=== PATIENT | female | born 1990 | race Caucasian/White ===

== ENCOUNTER 2017-02-24 21:55 | Emergency (ER) | payer MEDICAID ==
[~2017-02-24] VITALS: Ht 162.6 cm; Wt 70.9 kg
[2017-02-24 21:59] VITALS: BP 131/85
== END 2017-02-24 23:01 | disposition home or self-care (01) ==
LOC: ED 22:45
DX: K21.9 Gastro-esophageal reflux disease without esophagitis (principal); R05 Cough
CPT/HCPCS: 99283

== ENCOUNTER 2017-04-06 16:09 | Emergency (ER) | payer MEDICAID ==
[~2017-04-06] VITALS: Ht 160 cm; Wt 64.7 kg
[2017-04-06] MEDS ORDERED: LEVO112T4 PO (17:20)
[2017-04-06] MEDS ORDERED: SODIUM CHLORIDE FLUSH 10ML SYR IVF ONE (19:00)
[2017-04-06] MEDS ORDERED: SODIUM CHLORIDE 0.9% 1,000ML IVBOLUS ONE (19:00)
[2017-04-06 19:06] LABS: HEMATOCRIT 42.9 % (34.6-47.8); HEMOGLOBIN 14.7 g/dL (11.7-16.4); WHITE BLOOD COUNT 7.4 x10^3/uL (3.4-10)
[2017-04-06 19:16] LABS: BLOOD UREA NITROGEN 7 mg/dL (7-18)
[2017-04-06 20:49] VITALS: BP 109/76
== END 2017-04-06 20:51 | disposition home or self-care (01) ==
LOC: ED 18:12
DX: N93.8 Other specified abnormal uterine and vaginal bleeding (principal)
CPT/HCPCS: 36415; 76856; 80048; 82040; 84703; 85025; 86850; 86900; 96360; 96361; 99285; J7030

== ENCOUNTER 2017-04-18 15:23 | Emergency (ER) | payer MEDICAID ==
[~2017-04-18] VITALS: Ht 160 cm; Wt 64.1 kg
[~2017-04-18 15:23] MED LIST: LEVO112T4 PO
[2017-04-18 15:25] VITALS: BP 118/83
== END 2017-04-18 16:06 | disposition home or self-care (01) ==
LOC: ED 16:01
DX: J02.8 Acute pharyngitis due to other specified organisms (principal); B97.89 Other viral agents as the cause of diseases classified elsewhere; E03.9 Hypothyroidism, unspecified; Z88.8 Allergy status to other drugs, medicaments and biological substances
CPT/HCPCS: 87081; 87147; 87880; 99284

== ENCOUNTER 2017-05-21 14:43 | Emergency (ER) | payer MEDICAID ==
[~2017-05-21] VITALS: Ht 162.6 cm; Wt 62.2 kg
[2017-05-21 17:19] VITALS: BP 110/78
== END 2017-05-21 17:26 | disposition home or self-care (01) ==
LOC: ED 17:20
DX: J02.8 Acute pharyngitis due to other specified organisms (principal); B97.89 Other viral agents as the cause of diseases classified elsewhere; E89.0 Postprocedural hypothyroidism
CPT/HCPCS: 36415; 71020; 84439; 84443; 86308; 87081; 87880; 99285

== ENCOUNTER 2017-11-16 15:55 | Emergency (ER) | payer MEDICAID ==
[~2017-11-16] VITALS: Ht 160 cm; Wt 58.7 kg
[2017-11-16] MEDS ORDERED: LEVO125T5 PO (16:18)
[2017-11-16] MEDS ORDERED: CEFTRIAXONE 1,000 MG ONE (16:50)
[2017-11-16] MEDS ORDERED: LIDOCAINE-MPF 1%, 5ML ONE (16:50)
[2017-11-16] MEDS ORDERED: CEFTRIAXONE 1,000 MG IM ONE (17:00)
[2017-11-16 17:24] LABS: BASOPHILS # (AUTO) 0.06 x10^3/uL (0-0.1); BASOPHILS % (AUTO) 1 % (0-1); EOSINOPHILS # (AUTO) 0.15 x10^3/uL (0-0.4); EOSINOPHILS % (AUTO) 2 % (1-7); LYMPHOCYTES # (AUTO) 2.52 x10^3/uL (1-3.4); LYMPHOCYTES % (AUTO) 38 % (22-44); MD NO; MEAN CORPUSCULAR HEMOGLOBIN 29.7 pg (27.0-34.8); MEAN CORPUSCULAR HGB CONC 34.2 g/dL (32.4-35.8); MEAN CORPUSCULAR VOLUME 86.7 fL (80-100); MONOCYTES % (AUTO) 11 % (2-9); NEUTROPHILS # (AUTO) 3.22 x10^3/uL (1.8-6.8); NEUTROPHILS % (AUTO) 48 % (42-75); PLATELET COUNT 291 x10^3/uL (130-400); RED BLOOD COUNT 4.43 x10^6/uL (3.82-5.3); RED CELL DISTRIBUTION WIDTH 12.6 % (9.6-15.2)
[2017-11-16 17:33] LABS: ALBUMIN 3.2 g/dL (3.4-5.0); ANION GAP 8 mmol/L (5-15); CALCIUM 7.9 mg/dL (8.5-10.1); CHLORIDE 110 mmol/L (98-107); CREATININE 0.79 mg/dL (0.55-1.02)
[2017-11-16] MEDS ORDERED: BACITRACIN ZINC OINT 500U/GM, 0.9 GM ONE (18:01)
[2017-11-16 18:25] VITALS: BP 115/66
== END 2017-11-16 18:28 | disposition home or self-care (01) ==
LOC: ED 18:00
DX: L03.115 Cellulitis of right lower limb (principal)
CPT/HCPCS: 36415; 80048; 82040; 85025; 96372; 99284; J0696

== ENCOUNTER 2017-12-08 01:21 | Inpatient (IN) | payer MEDICAID ==
[~2017-12-08] VITALS: Ht 160 cm; Wt 64.7 kg
[~2017-12-08 01:21] MED LIST changes: +LEVO125T5 PO
[2017-12-08] MEDS ORDERED: SODIUM CHLORIDE FLUSH 10ML SYR IVF ONE (02:30)
[2017-12-08] MEDS ORDERED: CLINDAMYCIN PMX 600MG/50ML 50 ML IV ONE (02:30)
[2017-12-08 03:00] LABS: BASOPHILS # (AUTO) 0.04 x10^3/uL (0-0.1); BASOPHILS % (AUTO) 0 % (0-1); EOSINOPHILS # (AUTO) 0.02 x10^3/uL (0-0.4); EOSINOPHILS % (AUTO) 0 % (1-7); LYMPHOCYTES # (AUTO) 0.92 x10^3/uL (1-3.4); LYMPHOCYTES % (AUTO) 5 % (22-44); MD NO; MEAN CORPUSCULAR HEMOGLOBIN 29.6 pg (27.0-34.8); MEAN CORPUSCULAR HGB CONC 33.8 g/dL (32.4-35.8); MEAN CORPUSCULAR VOLUME 87.5 fL (80-100); MEAN PLATELET VOLUME 8.3 fL (7.4-10.4); MONOCYTES # (AUTO) 1.17 x10^3/uL (0.2-0.8); MONOCYTES % (AUTO) 7 % (2-9); NEUTROPHILS % (AUTO) 88 % (42-75); PLATELET COUNT 168 x10^3/uL (130-400); RED BLOOD COUNT 4.67 x10^6/uL (3.82-5.3); RED CELL DISTRIBUTION WIDTH 12.5 % (9.6-15.2)
[2017-12-08 03:09] LABS: ALBUMIN 3.2 g/dL (3.4-5.0); ANION GAP 9 mmol/L (5-15); CALCIUM 8.2 mg/dL (8.5-10.1); CHLORIDE 103 mmol/L (98-107); CREATININE 0.73 mg/dL (0.55-1.02)
[2017-12-08] MEDS ORDERED: CLINDAMYCIN PMX 600MG/50ML 50 ML ONE (03:09)
[2017-12-08] MEDS ORDERED: SODIUM CHLORIDE 0.9% 1,000ML IVBOLUS ONE (03:30)
[2017-12-08] MEDS ORDERED: ONDANSETRON 2MG/ML, 2ML IVPush PRN ×2 (04:00→05:00)
[2017-12-08] MEDS ORDERED: ONDANSETRON ODT 4 MG PO PRN (05:00)
[2017-12-08] MEDS ORDERED: ACETAMINOPHEN 325 MG TABLET PO PRN (05:00)
[2017-12-08] MEDS: NICOTINE 14MG/24 HR PATCH.TD24 TD SCH ×2 (05:00→06:19)
[2017-12-08] MEDS ORDERED: TEMAZEPAM 15 MG CAPSULE PO PRN (05:00)
[2017-12-08] MEDS ORDERED: DOCUSATE 100 MG CAPSULE PO PRN (05:00)
[2017-12-08] MEDS ORDERED: POTASSIUM CHLORIDE 20 MEQ TAB.ER.PRT PO ONE (05:00)
[2017-12-08 05:51] VITALS: BP 104/66
[2017-12-08] MEDS: LEVOTHYROXINE 125 MCG TABLET PO SCH (05:58)
[2017-12-08] MEDS: HEPARIN 5,000 UNITS/ML, 1ML SQ SCH ×3 (05:59→21:00)
[2017-12-08 09:02] VITALS: BP 110/65
[2017-12-08] MEDS: CLINDAMYCIN PMX 900MG/50ML 50 ML IV SCH ×2 (11:40→17:49)
[2017-12-08 14:47] VITALS: BP 117/71
[2017-12-08 18:33] VITALS: BP 97/62
[2017-12-09 01:21] VITALS: BP 94/59
[2017-12-09] MEDS: CLINDAMYCIN PMX 900MG/50ML 50 ML IV SCH ×3 (03:34→19:09)
[2017-12-09 04:38] LABS: BASOPHILS # (AUTO) 0.05 x10^3/uL (0-0.1); BASOPHILS % (AUTO) 0 % (0-1); EOSINOPHILS # (AUTO) 0.17 x10^3/uL (0-0.4); EOSINOPHILS % (AUTO) 1 % (1-7); LYMPHOCYTES # (AUTO) 1.86 x10^3/uL (1-3.4); LYMPHOCYTES % (AUTO) 13 % (22-44); MD NO; MEAN CORPUSCULAR HEMOGLOBIN 29.7 pg (27.0-34.8); MEAN CORPUSCULAR HGB CONC 33.5 g/dL (32.4-35.8); MEAN CORPUSCULAR VOLUME 88.6 fL (80-100); MEAN PLATELET VOLUME 8.3 fL (7.4-10.4); MONOCYTES # (AUTO) 1.42 x10^3/uL (0.2-0.8); MONOCYTES % (AUTO) 10 % (2-9); NEUTROPHILS # (AUTO) 11.02 x10^3/uL (1.8-6.8); NEUTROPHILS % (AUTO) 76 % (42-75); PLATELET COUNT 157 x10^3/uL (130-400); RED BLOOD COUNT 4.19 x10^6/uL (3.82-5.3); RED CELL DISTRIBUTION WIDTH 12.3 % (9.6-15.2)
[2017-12-09 04:46] LABS: ANION GAP 7 mmol/L (5-15); CALCIUM 7.6 mg/dL (8.5-10.1); CHLORIDE 105 mmol/L (98-107); CREATININE 0.48 mg/dL (0.55-1.02)
[2017-12-09] MEDS: NICOTINE 14MG/24 HR PATCH.TD24 TD SCH (05:00)
[2017-12-09] MEDS: HEPARIN 5,000 UNITS/ML, 1ML SQ SCH ×3 (05:00→21:53)
[2017-12-09] MEDS: LEVOTHYROXINE 125 MCG TABLET PO SCH (05:00)
[2017-12-09 07:11] VITALS: BP 102/65
[2017-12-09 13:45] VITALS: BP 110/72
[2017-12-09] MEDS ORDERED: GADOBUTROL 7.5 MMOL/7.5 ML PFS ONE (15:41)
[2017-12-09 19:14] VITALS: BP 96/60
[2017-12-10 01:45] VITALS: BP 95/57
[2017-12-10] MEDS: CLINDAMYCIN PMX 900MG/50ML 50 ML IV SCH ×2 (03:24→10:57)
[2017-12-10] MEDS: HEPARIN 5,000 UNITS/ML, 1ML SQ SCH ×2 (04:23→13:00)
[2017-12-10] MEDS: NICOTINE 14MG/24 HR PATCH.TD24 TD SCH (05:00)
[2017-12-10] MEDS: LEVOTHYROXINE 125 MCG TABLET PO SCH (06:00)
[2017-12-10 08:25] VITALS: BP 93/59
[2017-12-10 12:19] LABS: BASOPHILS % (AUTO) 0 % (0-1); EOSINOPHILS # (AUTO) 0.09 x10^3/uL (0-0.4); EOSINOPHILS % (AUTO) 1 % (1-7); LYMPHOCYTES # (AUTO) 1.16 x10^3/uL (1-3.4); LYMPHOCYTES % (AUTO) 10 % (22-44); MD NO; MEAN CORPUSCULAR HEMOGLOBIN 29.9 pg (27.0-34.8); MEAN PLATELET VOLUME 8.3 fL (7.4-10.4); MONOCYTES % (AUTO) 10 % (2-9); NEUTROPHILS # (AUTO) 9.09 x10^3/uL (1.8-6.8); NEUTROPHILS % (AUTO) 80 % (42-75); PLATELET COUNT 187 x10^3/uL (130-400); RED BLOOD COUNT 4.44 x10^6/uL (3.82-5.3); RED CELL DISTRIBUTION WIDTH 12.5 % (9.6-15.2)
[2017-12-10 12:30] LABS: ALBUMIN 2.5 g/dL (3.4-5.0); ANION GAP 6 mmol/L (5-15); CALCIUM 7.7 mg/dL (8.5-10.1); CHLORIDE 103 mmol/L (98-107)
[2017-12-10 12:36] LABS: ALANINE AMINOTRANSFERASE 12 U/L (12-78); ALKALINE PHOSPHATASE 61 U/L (45-117); BILIRUBIN,TOTAL 0.4 mg/dL (0.2-1.0); CREATININE 0.51 mg/dL (0.55-1.02); TOTAL PROTEIN 6.7 g/dL (6.4-8.2)
== END 2017-12-10 14:04 | disposition left against medical advice (07) | DRG 603 ==
LOC: ED 02:23 → EDIP 03:45 → 3NE 05:46
PROVIDERS: ADMIT Internal Medicine; ATTEND Internal Medicine
DX: L03.115 Cellulitis of right lower limb (principal); E03.9 Hypothyroidism, unspecified; F17.210 Nicotine dependence, cigarettes, uncomplicated; E87.6 Hypokalemia; F15.10 Other stimulant abuse, uncomplicated; Z79.899 Other long term (current) drug therapy; R73.9 Hyperglycemia, unspecified
CPT/HCPCS: 36415; 80048; 80053; 82040; 83605; 84145; 84702; 85025; 87040; 96365; A9585; J1644; J7030

== ENCOUNTER 2018-09-08 02:36 | Inpatient (IN) | payer MEDICAID, OTHER ==
[~2018-09-08] VITALS: Ht 157.5 cm; Wt 58.9 kg
--- NOTE | 2018-09-08 02:58 | NUR ---
PT. TO ED WITH C/O DIFFUSE ABD PAIN X 4 DAYS AND DIARRHEA. DENIES N/V. ALSO C/O SOME LOWER BACK PAIN. PT. REPORTS ETOH DAILY AND METH USE YESTERDAY. 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 ALEJANDRO PEREIRA IN TO EVAL PT. AND DISCUSS POC. URINE SAMPLE COLLECTED AND SENT TO LAB.
[2018-09-08] MEDS ORDERED: MORPHINE SULFATE 4 MG/ML, 1ML IVPush PRN (03:00)
[2018-09-08] MEDS ORDERED: ONDANSETRON 2MG/ML, 2ML IVPush ONE (03:00)
[2018-09-08] MEDS ORDERED: ONDANSETRON 2MG/ML, 2ML ONE ×2 (03:04→08:19)
[2018-09-08] MEDS ORDERED: MORPHINE SULFATE 4 MG/ML, 1ML ONE (03:04)
--- NOTE | 2018-09-08 03:15 | NUR ---
IV ESTABLISHED; BLOOD DRAWN. PT. REFUSED PAIN/NAUSEA MEDS. WARM BLANKET PROVIDED. CALL LIGHT IN REACH.
[2018-09-08 03:16] LABS: MICROSCOPIC AUTO
[2018-09-08 03:19] LABS: CULTURE INDICATED? NO
[2018-09-08 03:19] LABS: BASOPHILS # (AUTO) 0.02 x10^3/uL (0-0.1); BASOPHILS % (AUTO) 0 % (0-1); EOSINOPHILS % (AUTO) 1 % (1-7); LYMPHOCYTES # (AUTO) 1.06 x10^3/uL (1-3.4); LYMPHOCYTES % (AUTO) 12 % (22-44); MD NO; MEAN CORPUSCULAR HEMOGLOBIN 26.1 pg (27.0-34.8); MEAN CORPUSCULAR HGB CONC 32.1 g/dL (32.4-35.8); MEAN CORPUSCULAR VOLUME 81.3 fL (80-100); MONOCYTES # (AUTO) 0.62 x10^3/uL (0.2-0.8); MONOCYTES % (AUTO) 7 % (2-9); NEUTROPHILS # (AUTO) 7.14 x10^3/uL (1.8-6.8); NEUTROPHILS % (AUTO) 80 % (42-75); PLATELET COUNT 241 x10^3/uL (130-400); RED BLOOD COUNT 4.81 x10^6/uL (3.82-5.3); RED CELL DISTRIBUTION WIDTH 13.7 % (9.6-15.2)
[2018-09-08 03:25] LABS: CHLORIDE 104 mmol/L (98-107)
[2018-09-08 03:31] LABS: ALANINE AMINOTRANSFERASE 15 U/L (12-78); ALBUMIN 2.6 g/dL (3.4-5.0); ANION GAP 9 mmol/L (5-15); CALCIUM 7.7 mg/dL (8.5-10.1); CREATININE 0.52 mg/dL (0.55-1.02)
[2018-09-08 03:49] LABS: ALKALINE PHOSPHATASE 76 U/L (45-117); BILIRUBIN,TOTAL 0.2 mg/dL (0.2-1.0); TOTAL PROTEIN 7.5 g/dL (6.4-8.2)
[2018-09-08 03:50] LABS: WET PREP WBCS FEW (FEW)
[2018-09-08] MEDS ORDERED: KETOROLAC 30 MG/1 ML ONE ×2 (03:51→08:43)
[2018-09-08 03:54] LABS: CLUE CELLS NONE SEEN (NONE SEEN)
[2018-09-08] MEDS ORDERED: metroNIDAZOLE 500 MG TABLET PO ONE (04:00)
[2018-09-08] MEDS ORDERED: KETOROLAC 30 MG/1 ML IVPush ONE (04:00)
--- NOTE | 2018-09-08 04:00 | NUR ---
PT. MEDICATED PER OCT FOR 02/11 ABD PAIN. VS UPDATED. CALL LIGHT IN REACH. AWAITING CT.
--- NOTE | 2018-09-08 04:10 | NUR ---
PT. OUT OF ROOM FOR CT.
[2018-09-08] MEDS ORDERED: metroNIDAZOLE 500 MG TABLET ONE (04:26)
[2018-09-08] MEDS ORDERED: LEVO112T4 PO (05:00)
--- NOTE | 2018-09-08 05:14 | NUR ---
gen surg called.
--- NOTE | 2018-09-08 05:15 | NUR ---
PT. AWARE OF PLAN FOR ADMISSION AND NPO STATUS.
[2018-09-08] MEDS ORDERED: OMNIPAQUE 350 MG/ML, 100ML BOTTLE ONE (06:01)
--- NOTE | 2018-09-08 06:10 | NUR ---
NG TUBE PLACED AND PLACEMENT CONFIRMED BY 2 RN AT BS WITH AIR BOLUS; LOW CONTINUOUS SUCTION IN USE; 200 ML OF MOSTLY CLEAR LIQUID RETURNED. PT. TOLERATED PLACEMENT WELL BUT IS NOW SHOUTING "TAKE THIS THING OUT!! GET THIS OUT NOW! I DON'T WANT THIS, GET IT OUT!" EXPLAINED TO PT. NEED FOR NGT; PT. AGREEABLE WITH POC.
--- NOTE | 2018-09-08 06:47 | NUR ---
PT. CONTINUES RESTING ON GURNEY IN SITTING POSITON. EYES CLOSED. RESP EVEN, NON-LABORED. NGT REMAINS IN [place]; NO NEW OUTPUT ON LOW CONTINUOUS SUCTION. CALL LIGHT IN REACH. ALL SAFETY MEASURES OBSERVED.
--- NOTE | 2018-09-08 07:01 | NUR ---
REPORT TO HANH ALVARADO (WITH HANH MULLIGAN).
--- NOTE | 2018-09-08 07:05 | NUR ---
REPORT TO HANH MORRIS PRE OP. PT. TO GO TO OR IN ABOUT 10 MIN FOR EX LAP WITH DR. VILLEGAS PER PRE OP RN.
--- NOTE | 2018-09-08 07:21 | NUR ---
Pt to OR via [facility]. Body jewelry in nose, umbilicus & lip removed by pt. When attempted to assist taking socks off, noticed lump on top of sock, pt became agitated & would not let me help, asked me to leave room while she took them off because there was money in them. Offered to call security so money could be locked up & pt refused. Interaction relayed to OR manager transportation & pre-op HANH Vega also called & notified of pt's unusual behavior. Also notified that pt admits to using methamphetamine daily. All clothing/belongings/jewelry went up with pt.
[2018-09-08] MEDS ORDERED: BUPIVACAINE/PF-EPI 0.5% 1:200K ONE (07:23)
[2018-09-08] MEDS ORDERED: FENTANYL PF 250 MCG/5ML ONE (07:33)
[2018-09-08] MEDS ORDERED: MIDAZOLAM 1 MG/ML, 2ML ONE (07:33)
[2018-09-08] MEDS ORDERED: PHENYLEPHRINE 10 MG/ML ONE (07:43)
[2018-09-08] MEDS ORDERED: ROCURONIUM 10MG/ML,5ML ONE (07:43)
[2018-09-08] MEDS ORDERED: NEOSTIGMINE 1 MG/ML, 10ML ONE (07:43)
[2018-09-08] MEDS ORDERED: DEXAMETHASONE 4 MG/ML, 1ML ONE ×3 (07:58→08:19)
[2018-09-08] MEDS ORDERED: ONDANSETRON 2MG/ML, 2ML IVPush PRN (08:00)
[2018-09-08] MEDS ORDERED: ONDANSETRON ODT 4 MG PO PRN (08:00)
[2018-09-08] MEDS: PANTOPRAZOLE 40 MG IV IVPush SCH (08:00)
[2018-09-08] MEDS ORDERED: LABETALOL 5MG/ML, 20ML IVPush PRN (08:00)
[2018-09-08] MEDS ORDERED: morphine SULFATE 10 MG/ML, 1ML IVPush PRN (08:00)
[2018-09-08] MEDS ORDERED: PROPOFOL 10 MG/ML, 20ML ONE (08:19)
[2018-09-08] MEDS ORDERED: LIDOCAINE 2% 100MG/5ML SYRINGE ONE (08:19)
[2018-09-08] MEDS ORDERED: CEFOTETAN PMX 1GM/50ML 100 ML ONE (08:19)
[2018-09-08] MEDS ORDERED: GLYCOPYRROLATE 0.2MG/1ML, 5ML ONE (08:21)
[2018-09-08] MEDS ORDERED: ALBUTEROL SULFATE 2.5 MG/3 ML NPPB PRN (08:30)
[2018-09-08] MEDS ORDERED: PROMETHAZINE 25 MG/ML, 1ML IV PRN (08:30)
[2018-09-08] MEDS ORDERED: LORazepam 2 MG/ML, 1ML IVPush PRN (08:30)
[2018-09-08] MEDS ORDERED: OXYcodone 5 MG/5 ML ORAL.SOL UDC PO PRN (08:30)
[2018-09-08] MEDS ORDERED: HYDROmorphone 2 MG/ML, 1ML IVPush PRN (08:30)
[2018-09-08] MEDS ORDERED: FENTANYL PF 100 MCG/2ML IV PRN (08:30)
[2018-09-08] MEDS ORDERED: HALOPERIDOL 5 MG/ML IV PRN (08:30)
[2018-09-08] MEDS ORDERED: hydrALAzine 20 MG/ML, 1ML IV PRN (08:30)
[2018-09-08] MEDS ORDERED: MEPERIDINE/PF 25MG/0.5ML IVPush PRN (08:30)
[2018-09-08] MEDS ORDERED: FENTANYL PF 100 MCG/2ML ONE (08:43)
[2018-09-08] MEDS ORDERED: KETOROLAC 30 MG/1 ML IVPush PRN (09:00)
[2018-09-08 10:19] VITALS: BP 111/71
[2018-09-08] MEDS ORDERED: D5%-0.45NACL+KCL 20MEQ 1,000 ML IV SCH (10:30)
[2018-09-08] MEDS ORDERED: POTASSIUM CHLORIDE 20 MEQ, MAGNESIUM SULFATE 1 GM, MVI ADULT 10 ML, THIAMINE 200 MG, FO... IV SCH (11:00)
[2018-09-08] MEDS ORDERED: LORazepam 1MG TABLET PO PRN ×4 (11:00)
[2018-09-08] MEDS ORDERED: LORazepam 0.5MG TABLET PO PRN (11:00)
[2018-09-08] MEDS ORDERED: LORazepam 2 MG/ML, 1ML IV PRN ×5 (11:00)
[2018-09-08] MEDS ORDERED: ONDANSETRON 2MG/ML, 2ML IV PRN (11:30)
[2018-09-08] MEDS ORDERED: LACTATED RINGERS 1,000 ML IV SCH (11:30)
[2018-09-08] MEDS: POTASSIUM CHLORIDE 20 MEQ, MAGNESIUM SULFATE 1 GM, MVI ADULT 10 ML, FOLIC ACID 1 MG in ... IV SCH (11:59)
[2018-09-08 12:17] VITALS: BP 109/72
[2018-09-08] MEDS: CEFTRIAXONE PMX 1GM/50ML 50 ML IV SCH (14:44)
[2018-09-08] MEDS ORDERED: ENOXAPARIN 40 MG/0.4 ML SQ SCH (15:00)
[2018-09-08] MEDS ORDERED: AZITHROMYCIN 1,000 MG in SODIUM CHLORIDE 0.9% 500 ML IV ONE (15:30)
[2018-09-08] MEDS: METRONIDAZOLE PMX 500MG/100ML 100 ML IV SCH ×2 (15:45→22:12)
[2018-09-08] MEDS ORDERED: THIAMINE 100MG TABLET PO ONE (17:00)
[2018-09-08] MEDS: DOXYCYCLINE 100 MG in DEXTROSE 5% 250 ML IV SCH (19:35)
[2018-09-08 19:39] VITALS: BP 96/50
[2018-09-08] MEDS: KETOROLAC 30 MG/1 ML IV PRN (21:15)
[2018-09-08] MEDS: D5%-LR+KCL 20MEQ 1,000 ML IV SCH (22:12)
[2018-09-09 00:01] VITALS: BP 95/54
[2018-09-09 00:59] LABS: AMPHETAMINE SCREEN, URINE Positive (Negative); BARBITURATE SCREEN, URINE Negative (Negative); BENZODIAZEPINE SCREEN, URINE Positive (Negative); CANNABINOID SCREEN, URINE Negative (Negative); COCAINE SCREEN, URINE Negative (Negative); METHADONE SCREEN, URINE Negative (Negative); OPIATE SCREEN, URINE Negative (Negative)
[2018-09-09 03:25] VITALS: BP 96/54
[2018-09-09 06:00] LABS: ALANINE AMINOTRANSFERASE 9 U/L (12-78); ALBUMIN 1.8 g/dL (3.4-5.0); ANION GAP 4 mmol/L (5-15); CALCIUM 7.3 mg/dL (8.5-10.1); CHLORIDE 109 mmol/L (98-107); CREATININE 0.48 mg/dL (0.55-1.02)
[2018-09-09] MEDS: morphine SULFATE 10 MG/ML, 1ML IV PRN ×2 (06:00→17:47)
[2018-09-09] MEDS: METRONIDAZOLE PMX 500MG/100ML 100 ML IV SCH ×3 (06:00→22:12)
[2018-09-09 06:09] LABS: BASOPHILS % (AUTO) 0 % (0-1); EOSINOPHILS % (AUTO) 0 % (1-7); LYMPHOCYTES # (AUTO) 1.19 x10^3/uL (1-3.4); LYMPHOCYTES % (AUTO) 13 % (22-44); MD NO; MEAN CORPUSCULAR HEMOGLOBIN 27.1 pg (27.0-34.8); MEAN CORPUSCULAR HGB CONC 33.6 g/dL (32.4-35.8); MEAN CORPUSCULAR VOLUME 80.8 fL (80-100); MEAN PLATELET VOLUME 7.5 fL (7.4-10.4); MONOCYTES # (AUTO) 0.59 x10^3/uL (0.2-0.8); MONOCYTES % (AUTO) 6 % (2-9); NEUTROPHILS # (AUTO) 7.56 x10^3/uL (1.8-6.8); NEUTROPHILS % (AUTO) 81 % (42-75); PLATELET COUNT 216 x10^3/uL (130-400); RED BLOOD COUNT 3.74 x10^6/uL (3.82-5.3); RED CELL DISTRIBUTION WIDTH 13.6 % (9.6-15.2)
[2018-09-09 06:10] LABS: ALKALINE PHOSPHATASE 60 U/L (45-117); BILIRUBIN,TOTAL 0.3 mg/dL (0.2-1.0); TOTAL PROTEIN 5.7 g/dL (6.4-8.2)
[2018-09-09 06:59] VITALS: BP 93/57
[2018-09-09] MEDS: D5%-LR+KCL 20MEQ 1,000 ML IV SCH ×2 (07:33→23:02)
[2018-09-09] MEDS: PANTOPRAZOLE 40 MG IV IVPush SCH (07:56)
[2018-09-09] MEDS: DOXYCYCLINE 100 MG in DEXTROSE 5% 250 ML IV SCH ×2 (07:56→19:20)
[2018-09-09] MEDS ORDERED: HYDROcodone/APAP 5/325 TABLET PO PRN (08:30)
[2018-09-09] MEDS: THIAMINE 100MG TABLET PO SCH (09:00)
[2018-09-09] MEDS ORDERED: THIAMINE 100 MG/ML, 2ML IM SCH (09:00)
[2018-09-09] MEDS: LEVOTHYROXINE 125 MCG TABLET PO SCH (09:00)
[2018-09-09] MEDS: KETOROLAC 30 MG/1 ML IV PRN ×2 (12:34→19:30)
[2018-09-09] MEDS: POTASSIUM CHLORIDE 20 MEQ, MAGNESIUM SULFATE 1 GM, MVI ADULT 10 ML, FOLIC ACID 1 MG in ... IV SCH (13:12)
[2018-09-09 13:14] VITALS: BP 94/58
[2018-09-09] MEDS: CEFTRIAXONE PMX 1GM/50ML 50 ML IV SCH (14:07)
[2018-09-09 19:07] VITALS: BP 93/62
[2018-09-10 02:18] VITALS: BP 97/62
[2018-09-10] MEDS: morphine SULFATE 10 MG/ML, 1ML IV PRN (02:27)
[2018-09-10 05:41] LABS: BASOPHILS # (AUTO) 0.02 x10^3/uL (0-0.1); BASOPHILS % (AUTO) 0 % (0-1); EOSINOPHILS # (AUTO) 0.05 x10^3/uL (0-0.4); EOSINOPHILS % (AUTO) 1 % (1-7); LYMPHOCYTES % (AUTO) 24 % (22-44); MD NO; MEAN CORPUSCULAR HEMOGLOBIN 27.3 pg (27.0-34.8); MEAN CORPUSCULAR HGB CONC 33.8 g/dL (32.4-35.8); MEAN CORPUSCULAR VOLUME 80.7 fL (80-100); MEAN PLATELET VOLUME 7.1 fL (7.4-10.4); MONOCYTES # (AUTO) 0.45 x10^3/uL (0.2-0.8); MONOCYTES % (AUTO) 9 % (2-9); NEUTROPHILS # (AUTO) 3.27 x10^3/uL (1.8-6.8); NEUTROPHILS % (AUTO) 66 % (42-75); PLATELET COUNT 192 x10^3/uL (130-400); RED BLOOD COUNT 3.55 x10^6/uL (3.82-5.3); RED CELL DISTRIBUTION WIDTH 13.7 % (9.6-15.2)
[2018-09-10] MEDS: KETOROLAC 30 MG/1 ML IV PRN (05:54)
[2018-09-10] MEDS: LEVOTHYROXINE 125 MCG TABLET PO SCH (05:54)
[2018-09-10] MEDS: METRONIDAZOLE PMX 500MG/100ML 100 ML IV SCH (05:54)
[2018-09-10 05:58] LABS: ALBUMIN 1.8 g/dL (3.4-5.0); ANION GAP 5 mmol/L (5-15); CHLORIDE 110 mmol/L (98-107)
[2018-09-10 06:00] LABS: ALANINE AMINOTRANSFERASE 10 U/L (12-78); ALKALINE PHOSPHATASE 53 U/L (45-117); BILIRUBIN,TOTAL 0.2 mg/dL (0.2-1.0); CREATININE 0.51 mg/dL (0.55-1.02); TOTAL PROTEIN 5.5 g/dL (6.4-8.2)
[2018-09-10] MEDS: D5%-LR+KCL 20MEQ 1,000 ML IV SCH (07:15)
[2018-09-10] MEDS: DOXYCYCLINE 100 MG in DEXTROSE 5% 250 ML IV SCH (07:30)
[2018-09-10 07:49] VITALS: BP 100/64
[2018-09-10] MEDS: PANTOPRAZOLE 40 MG IV IVPush SCH (08:40)
[2018-09-10] MEDS: THIAMINE 100MG TABLET PO SCH (09:53)
[2018-09-10] MEDS: DOXYCYCLINE 100MG TABLET PO SCH ×2 (09:53→20:24)
[2018-09-10] MEDS: SODIUM CHLORIDE 0.45% 1,000 ML IV SCH ×2 (09:54→17:00)
[2018-09-10] MEDS: POTASSIUM CHLORIDE 20 MEQ, MAGNESIUM SULFATE 1 GM, MVI ADULT 10 ML, FOLIC ACID 1 MG in ... IV SCH (11:33)
[2018-09-10 12:50] VITALS: BP 93/61
[2018-09-10] MEDS ORDERED: metroNIDAZOLE 500 MG TABLET PO SCH (14:00)
[2018-09-10] MEDS ORDERED: BICILLIN-LA 2,400,000 UNITS/4 ML IM ONE (16:30)
[2018-09-10 19:45] VITALS: BP 104/69
[2018-09-10] MEDS ORDERED: HYDROcodone/APAP 5/325 TABLET PO PRN (20:30)
[2018-09-10] MEDS: metroNIDAZOLE 500 MG TABLET PO SCH (21:35)
[2018-09-11 02:28] VITALS: BP 100/70
[2018-09-11] MEDS: SODIUM CHLORIDE 0.45% 1,000 ML IV SCH ×2 (04:08→11:38)
[2018-09-11] MEDS: metroNIDAZOLE 500 MG TABLET PO SCH ×2 (05:33→14:10)
[2018-09-11] MEDS: LEVOTHYROXINE 125 MCG TABLET PO SCH (05:34)
[2018-09-11 05:55] LABS: BASOPHILS # (AUTO) 0.02 x10^3/uL (0-0.1); BASOPHILS % (AUTO) 0 % (0-1); EOSINOPHILS # (AUTO) 0.07 x10^3/uL (0-0.4); EOSINOPHILS % (AUTO) 1 % (1-7); LYMPHOCYTES # (AUTO) 1.25 x10^3/uL (1-3.4); LYMPHOCYTES % (AUTO) 22 % (22-44); MD NO; MEAN CORPUSCULAR HEMOGLOBIN 27.3 pg (27.0-34.8); MEAN CORPUSCULAR HGB CONC 33.8 g/dL (32.4-35.8); MEAN CORPUSCULAR VOLUME 80.9 fL (80-100); MEAN PLATELET VOLUME 7.4 fL (7.4-10.4); MONOCYTES # (AUTO) 0.45 x10^3/uL (0.2-0.8); MONOCYTES % (AUTO) 8 % (2-9); NEUTROPHILS # (AUTO) 3.91 x10^3/uL (1.8-6.8); NEUTROPHILS % (AUTO) 69 % (42-75); PLATELET COUNT 254 x10^3/uL (130-400); RED BLOOD COUNT 3.96 x10^6/uL (3.82-5.3); RED CELL DISTRIBUTION WIDTH 14.2 % (9.6-15.2)
[2018-09-11] MEDS ORDERED: PANTOPROZOLE 40MG TABLET PO SCH (06:00)
[2018-09-11 06:03] LABS: CHLORIDE 108 mmol/L (98-107)
[2018-09-11 06:15] LABS: ALANINE AMINOTRANSFERASE 12 U/L (12-78); ALKALINE PHOSPHATASE 55 U/L (45-117); ANION GAP 6 mmol/L (5-15); BILIRUBIN,TOTAL 0.2 mg/dL (0.2-1.0); CALCIUM 7.1 mg/dL (8.5-10.1); TOTAL PROTEIN 5.8 g/dL (6.4-8.2)
[2018-09-11] MEDS: DOXYCYCLINE 100MG TABLET PO SCH (09:19)
[2018-09-11] MEDS: THIAMINE 100MG TABLET PO SCH (09:19)
[2018-09-11 09:25] VITALS: BP 108/68
[2018-09-11] MEDS ORDERED: HYDR-3240 PO (12:55)
[2018-09-11 14:06] VITALS: BP 111/75
[2018-09-12] MEDS ORDERED: THIAMINE 100MG TABLET PO SCH ×2 (09:00)
== END 2018-09-11 16:01 | disposition left against medical advice (07) | DRG 335 ==
LOC: ED 03:49 → EDIP 05:19 → 4NOR 09:50
PROVIDERS: ADMIT Hospitalist; ATTEND Hospitalist
PROC: 0DTJ0ZZ Resection of Appendix, Open Approach (ICD-10-PCS; 2018-09-08)
PROC: 0DN80ZZ Release Small Intestine, Open Approach (ICD-10-PCS; principal; 2018-09-08 07:30)
DX: K56.609 Unspecified intestinal obstruction, unspecified as to partial versus complete obstruction (principal); E43 Unspecified severe protein-calorie malnutrition; E87.1 Hypo-osmolality and hyponatremia; A59.01 Trichomonal vulvovaginitis; E03.9 Hypothyroidism, unspecified; E87.6 Hypokalemia; F10.20 Alcohol dependence, uncomplicated; F15.10 Other stimulant abuse, uncomplicated; F17.200 Nicotine dependence, unspecified, uncomplicated; N73.9 Female pelvic inflammatory disease, unspecified; K66.0 Peritoneal adhesions (postprocedural) (postinfection); M54.5 Low back pain; A53.9 Syphilis, unspecified; Z68.23 Body mass index [BMI] 23.0-23.9, adult
CPT/HCPCS: 36415; 87806; J3490; 74177; 76830; 80053; 80074; 80307; 81001; 83690; 83735; 84100; 84439; 84443; 84703; 85025; 86592; 86780; 87070; 87075; 87077; 87186; 87205; 87210; 87491; 87591; 87808; 88304; G0378; J0456; J0561; J0696; J1100; J1650; J1885; J2250; J2405; J2704; J2710; J3010; J3475; J3480; J7060; Q0162; Q9967; C9113; G0475; J2060; J2270; J2370; J7040; J7120

== ENCOUNTER 2019-06-18 20:32 | Emergency (ER) | payer MEDICAID ==
[~2019-06-18] VITALS: Ht 160 cm; Wt 60.6 kg
[~2019-06-18 20:32] MED LIST changes: +HYDR-3240 PO
[2019-06-18 20:56] VITALS: BP 137/87
[2019-06-18 21:38] LABS: BASOPHILS # (AUTO) 0.03 x10^3/uL (0-0.1); BASOPHILS % (AUTO) 0 % (0-1); EOSINOPHILS # (AUTO) 0.16 x10^3/uL (0-0.4); EOSINOPHILS % (AUTO) 2 % (1-7); LYMPHOCYTES # (AUTO) 2.06 x10^3/uL (1-3.4); LYMPHOCYTES % (AUTO) 27 % (22-44); MD NO; MEAN CORPUSCULAR HEMOGLOBIN 28.5 pg (27.0-34.8); MEAN CORPUSCULAR HGB CONC 32.8 g/dL (32.4-35.8); MEAN CORPUSCULAR VOLUME 86.9 fL (80-100); MEAN PLATELET VOLUME 8.1 fL (7.4-10.4); MONOCYTES # (AUTO) 0.75 x10^3/uL (0.2-0.8); MONOCYTES % (AUTO) 10 % (2-9); NEUTROPHILS # (AUTO) 4.57 x10^3/uL (1.8-6.8); NEUTROPHILS % (AUTO) 60 % (42-75); PLATELET COUNT 268 x10^3/uL (130-400); RED BLOOD COUNT 4.57 x10^6/uL (3.82-5.3); RED CELL DISTRIBUTION WIDTH 14.2 % (9.6-15.2)
[2019-06-18 21:49] LABS: ALBUMIN 3.6 g/dL (3.4-5.0); ANION GAP 4 mmol/L (5-15); CALCIUM 8.1 mg/dL (8.5-10.1); CHLORIDE 107 mmol/L (98-107); CREATININE 0.81 mg/dL (0.55-1.02)
[2019-06-18 22:20] LABS: FREE T4 (FREE THYROXINE) 0.57 ng/dL (0.76-1.46)
[2019-06-18] MEDS ORDERED: LEVOTHYROXINE 125 MCG TABLET PO ONE (23:00)
== END 2019-06-18 23:08 | disposition home or self-care (01) ==
LOC: ED 23:02
DX: F15.10 Other stimulant abuse, uncomplicated (principal); E89.0 Postprocedural hypothyroidism; F17.200 Nicotine dependence, unspecified, uncomplicated
CPT/HCPCS: 36415; 80048; 82040; 84439; 84443; 84703; 85025; 99283

== ENCOUNTER 2019-06-20 01:17 | Emergency (ER) | payer MEDICAID ==
[~2019-06-20] VITALS: Ht 160 cm; Wt 62.0 kg
--- NOTE | 2019-06-20 01:49 | NUR ---
Pt bib s/o with c/o lac to R ankle. Pt was climbing through a broken window and cut herself. Pt unsure what time but states "a couple hours ago". Bleeding controlled at this time. unk tdap. xray at bedside.
[2019-06-20] MEDS ORDERED: LIDOCAINE 1%-EPI 1:100K, 20ML ONE (01:51)
[2019-06-20] MEDS ORDERED: DIPH,PERTUSS(ACELL),TET VAC/PF 0.5 ML IM-VACC ONE ×2 (01:52→02:00)
[2019-06-20] MEDS ORDERED: HYDROcodone/APAP 5/325 TABLET ONE (01:52)
[2019-06-20] MEDS ORDERED: LIDOCAINE 1%-EPI 1:100K, 20ML INFIL ONE (02:00)
[2019-06-20] MEDS ORDERED: HYDROcodone/APAP 5/325 TABLET PO ONE (02:00)
--- NOTE | 2019-06-20 02:22 | NUR ---
Wound irrigated by tech. Pt prepped for sutures.
[2019-06-20] MEDS ORDERED: NEOSPORIN OINT. PKT 1 PACKET ONE (02:59)
[2019-06-20 03:18] VITALS: BP 126/84
== END 2019-06-20 03:21 | disposition home or self-care (01) ==
LOC: ED 02:26
DX: S91.011A Laceration without foreign body, right ankle, initial encounter (principal); E03.9 Hypothyroidism, unspecified; F17.200 Nicotine dependence, unspecified, uncomplicated; Z72.9 Problem related to lifestyle, unspecified; Z98.51 Tubal ligation status; W25.XXXA Contact with sharp glass, initial encounter; Y93.39 Activity, other involving climbing, rappelling and jumping off; Y92.098 Other place in other non-institutional residence as the place of occurrence of the external cause; Y99.8 Other external cause status
CPT/HCPCS: 12031; 90471; 90715; 99284

== ENCOUNTER 2019-08-22 21:20 | Emergency (ER) | payer MEDICAID ==
[~2019-08-22] VITALS: Ht 160 cm; Wt 59.9 kg
[2019-08-22 21:34] VITALS: BP 140/77
== END 2019-08-22 22:03 | disposition home or self-care (01) ==
LOC: ED 21:40
DX: E03.9 Hypothyroidism, unspecified (principal); Z76.0 Encounter for issue of repeat prescription; F17.200 Nicotine dependence, unspecified, uncomplicated
CPT/HCPCS: 99283

== ENCOUNTER 2019-10-17 11:57 | Emergency (ER) | payer MEDICAID ==
[~2019-10-17] VITALS: Ht 160 cm; Wt 60.0 kg
[2019-10-17 11:59] VITALS: BP 144/88
--- NOTE | 2019-10-17 12:16 | NUR ---
"NOT FEELING LIKE MYSELF FOR ONE WEEK". NAUSEA AND DIARRHEA FOR 2 DAYS. PT STATED RECENT DECREASE IN LEVOTHYROXINE
[2019-10-17 12:55] LABS: BASOPHILS # (AUTO) 0.04 x10^3/uL (0-0.1); BASOPHILS % (AUTO) 1 % (0-1); EOSINOPHILS # (AUTO) 0.06 x10^3/uL (0-0.4); EOSINOPHILS % (AUTO) 1 % (1-7); LYMPHOCYTES # (AUTO) 1.42 x10^3/uL (1-3.4); LYMPHOCYTES % (AUTO) 27 % (22-44); MD NO; MEAN CORPUSCULAR HGB CONC 33.1 g/dL (32.4-35.8); MEAN CORPUSCULAR VOLUME 81.7 fL (80-100); MONOCYTES # (AUTO) 0.38 x10^3/uL (0.2-0.8); MONOCYTES % (AUTO) 7 % (2-9); NEUTROPHILS # (AUTO) 3.34 x10^3/uL (1.8-6.8); NEUTROPHILS % (AUTO) 64 % (42-75); PLATELET COUNT 228 x10^3/uL (130-400); RED BLOOD COUNT 4.59 x10^6/uL (3.82-5.3); RED CELL DISTRIBUTION WIDTH 15.7 % (9.6-15.2)
[2019-10-17 13:07] LABS: FREE T4 (FREE THYROXINE) 0.75 ng/dL (0.76-1.46)
--- NOTE | 2019-10-17 13:30 | NUR ---
DISCHARGE INSTRUCTIONS REVIEWED
== END 2019-10-17 13:38 | disposition home or self-care (01) ==
LOC: ED 12:45
DX: E03.9 Hypothyroidism, unspecified (principal)
CPT/HCPCS: 36415; 84439; 84443; 84703; 85025; 99283

== ENCOUNTER 2019-11-25 09:20 | Emergency (ER) | payer MEDICAID ==
[~2019-11-25] VITALS: Ht 160 cm; Wt 61.8 kg
[2019-11-25] MEDS ORDERED: ONDANSETRON ODT 4 MG ONE (09:42)
--- NOTE | 2019-11-25 09:48 | NUR ---
PT CAME IN CO OF "NAUSEA AND DIARRHEA AND FEELING TIRED ALL THE TIME" PT DENIES COUGH, SOB, FEVERS OR SORE THROAT. PT HAS HX OF HYPOTHROID AND ADMITS SHE HASNT BEEN TAKING HER SYNTHROID. UA SENT.
[2019-11-25] MEDS ORDERED: ONDANSETRON ODT 4 MG PO ONE (10:00)
[2019-11-25 10:08] LABS: MICROSCOPIC AUTO
[2019-11-25 10:26] LABS: CULTURE INDICATED? YES
[2019-11-25 11:07] LABS: BASOPHILS # (AUTO) 0.05 x10^3/uL (0-0.1); BASOPHILS % (AUTO) 1 % (0-1); EOSINOPHILS # (AUTO) 0.09 x10^3/uL (0-0.4); EOSINOPHILS % (AUTO) 1 % (1-7); LYMPHOCYTES # (AUTO) 1.44 x10^3/uL (1-3.4); LYMPHOCYTES % (AUTO) 20 % (22-44); MD NO; MEAN CORPUSCULAR HEMOGLOBIN 27.5 pg (27.0-34.8); MEAN CORPUSCULAR VOLUME 83.4 fL (80-100); MONOCYTES # (AUTO) 0.74 x10^3/uL (0.2-0.8); MONOCYTES % (AUTO) 10 % (2-9); NEUTROPHILS # (AUTO) 4.95 x10^3/uL (1.8-6.8); NEUTROPHILS % (AUTO) 68 % (42-75); PLATELET COUNT 193 x10^3/uL (130-400); RED BLOOD COUNT 4.93 x10^6/uL (3.82-5.3); RED CELL DISTRIBUTION WIDTH 15.7 % (9.6-15.2)
[2019-11-25 11:20] LABS: ALANINE AMINOTRANSFERASE 21 U/L (12-78); ALBUMIN 3.1 g/dL (3.4-5.0); ANION GAP 5 mmol/L (5-15); CALCIUM 7.6 mg/dL (8.5-10.1); CHLORIDE 107 mmol/L (98-107); CREATININE 0.66 mg/dL (0.55-1.02)
[2019-11-25 11:25] LABS: ALKALINE PHOSPHATASE 57 U/L (45-117); BILIRUBIN,TOTAL 0.4 mg/dL (0.2-1.0); TOTAL PROTEIN 6.9 g/dL (6.4-8.2)
[2019-11-25 11:32] VITALS: BP 124/67
--- NOTE | 2019-11-25 11:33 | NUR ---
PT RESTING IN [facility]. NAD. VSS. UP FOR RECHECK
== END 2019-11-25 12:05 ==
LOC: ED 10:16
DX: R19.7 Diarrhea, unspecified (principal); R11.0 Nausea; E03.1 Congenital hypothyroidism without goiter; K21.9 Gastro-esophageal reflux disease without esophagitis
CPT/HCPCS: 36415; 74022; 80053; 81001; 83690; 84439; 84443; 84703; 85025; 87086; 99284; Q0162

== ENCOUNTER 2020-01-18 23:07 | Emergency (ER) | payer MEDICAID ==
[~2020-01-18] VITALS: Ht 160 cm; Wt 60.2 kg
[2020-01-18 23:11] VITALS: BP 129/89
== END 2020-01-19 00:01 | disposition home or self-care (01) ==
LOC: ED 23:35
DX: E03.9 Hypothyroidism, unspecified (principal); R53.83 Other fatigue; Z76.0 Encounter for issue of repeat prescription
CPT/HCPCS: 99281; 99283

== ENCOUNTER 2020-02-28 10:02 | Emergency (ER) | payer MEDICAID ==
[~2020-02-28] VITALS: Ht 160 cm; Wt 58.0 kg
[2020-02-28 10:23] VITALS: BP 122/81
--- NOTE | 2020-02-28 10:55 | NUR ---
NO ANSWER FROM TRIAGE
--- NOTE | 2020-02-28 11:08 | NUR ---
NO ANSWER FROM [facility]. PT NOT FOUND IN ED WAITING AREA
--- NOTE | 2020-02-28 11:18 | NUR ---
NO ANSWER FROM TRIAGE, PT NOT FOUND IN ED WAITING AREA
== END 2020-02-28 11:19 | disposition left against medical advice (07) ==
LOC: ED 11:13
DX: Z76.0 Encounter for issue of repeat prescription (principal); Z53.21 Procedure and treatment not carried out due to patient leaving prior to being seen by health care provider

== ENCOUNTER 2020-03-02 10:26 | Emergency (ER) | payer MEDICAID ==
[~2020-03-02] VITALS: Ht 160 cm; Wt 58.1 kg
[2020-03-02 12:20] VITALS: BP 132/84
== END 2020-03-02 13:12 | disposition home or self-care (01) ==
LOC: ED 12:30
DX: E03.9 Hypothyroidism, unspecified (principal); Z76.0 Encounter for issue of repeat prescription; F15.10 Other stimulant abuse, uncomplicated; F17.210 Nicotine dependence, cigarettes, uncomplicated; Z98.51 Tubal ligation status
CPT/HCPCS: 99281; 99406

== ENCOUNTER 2020-04-02 04:29 | Emergency (ER) | payer MEDICAID ==
--- NOTE | 2020-04-02 04:41 | NUR ---
PATIENT LEFT PRIOR TRIAGE
== END 2020-04-02 04:45 | disposition left against medical advice (07) ==
LOC: ED 04:39
DX: R53.1 Weakness (principal); Z53.21 Procedure and treatment not carried out due to patient leaving prior to being seen by health care provider

== ENCOUNTER 2020-04-15 01:57 | Emergency (ER) | payer MEDICAID ==
[~2020-04-15] VITALS: Ht 160 cm; Wt 61.0 kg
[2020-04-15 02:13] VITALS: BP 150/91
== END 2020-04-15 02:38 | disposition home or self-care (01) ==
LOC: ED 02:15
DX: E03.9 Hypothyroidism, unspecified (principal); Z76.0 Encounter for issue of repeat prescription; F15.10 Other stimulant abuse, uncomplicated; F17.210 Nicotine dependence, cigarettes, uncomplicated
CPT/HCPCS: 99281; 99406

== ENCOUNTER 2020-05-13 04:06 | Emergency (ER) | payer MEDICAID ==
[~2020-05-13] VITALS: Ht 160 cm; Wt 59.3 kg
[2020-05-13 04:12] VITALS: BP 119/82
== END 2020-05-13 05:02 | disposition home or self-care (01) ==
LOC: ED 04:40
DX: E03.9 Hypothyroidism, unspecified (principal); Z76.0 Encounter for issue of repeat prescription; F15.90 Other stimulant use, unspecified, uncomplicated; F17.210 Nicotine dependence, cigarettes, uncomplicated
CPT/HCPCS: 99406

== ENCOUNTER 2020-06-23 16:09 | Emergency (ER) | payer MEDICAID ==
--- NOTE | 2020-06-23 16:27 | NUR ---
nil x1 as
--- NOTE | 2020-06-23 16:33 | NUR ---
nil x2. as
--- NOTE | 2020-06-23 16:40 | NUR ---
nil x3. as
== END 2020-06-23 17:22 | disposition left against medical advice (07) ==
LOC: ED 17:15
DX: Z76.0 Encounter for issue of repeat prescription (principal); Z53.21 Procedure and treatment not carried out due to patient leaving prior to being seen by health care provider

== ENCOUNTER 2020-06-26 05:56 | Emergency (ER) | payer MEDICAID ==
[~2020-06-26] VITALS: Ht 160 cm; Wt 60.0 kg
[2020-06-26 06:09] VITALS: BP 132/90
--- NOTE | 2020-06-26 06:23 | NUR ---
PT AMBULATES FROM TRIAGE TO ROOM WITH STEADY GAIT.
--- NOTE | 2020-06-26 06:38 | NUR ---
PT D/C WITH D/C SUMMARY AND SCRIPT. PT QUESTIONS ANSWERED. PT AMBULATES TO REGISTRATION DESK WITH STEADY GAIT FOR D/C HOME AND DENIES ANY OTHER NEEDS PERTAINING TO THIS VISIT.
== END 2020-06-26 06:41 | disposition home or self-care (01) ==
LOC: ED 06:25
DX: E03.9 Hypothyroidism, unspecified (principal); Z76.0 Encounter for issue of repeat prescription; Z98.51 Tubal ligation status
CPT/HCPCS: 99281

== ENCOUNTER 2020-08-12 09:31 | Emergency (ER) | payer MEDICAID ==
[~2020-08-12] VITALS: Ht 160 cm; Wt 62.0 kg
[2020-08-12 09:36] VITALS: BP 147/94
== END 2020-08-12 09:59 | disposition home or self-care (01) ==
LOC: ED 09:57
DX: E03.9 Hypothyroidism, unspecified (principal); Z76.0 Encounter for issue of repeat prescription; F17.210 Nicotine dependence, cigarettes, uncomplicated; Z98.51 Tubal ligation status
CPT/HCPCS: 99281; 99406

== ENCOUNTER 2020-09-11 20:32 | Emergency (ER) | payer MEDICAID ==
[~2020-09-11] VITALS: Ht 160 cm; Wt 56.8 kg
[~2020-09-11 20:32] MED LIST changes: +HYDR-1067 PO; -HYDR-3240 PO
[2020-09-11 20:37] VITALS: BP 122/76
--- NOTE | 2020-09-11 20:40 | NUR ---
PT ARPAN DAWN FROM THE [employer] [place] WHERE SHE'S STAYING. PT REPORTS, "I THINK I HAD AN ALLERGIC REACTION OR SOMETHING. I FEEL SOB, FATIGUE, I JUST HAVEN'T FELT RIGHT ALL DAY." ALSO C/O RASH TO FACE AND BILAT ARMS. PT REPORTS BEING AROUND HER BROTHER AND SISTER, WHO WERE COVID+. HR 100s, OTHER VSS PER EMS. PT A&OX4. PT ISOLATED IN ROOM, DROPLET PLUS PRECAUTIONS IN PLACE.
[2020-09-11] MEDS ORDERED: SODIUM CHLORIDE FLUSH 10ML SYR IVF ONE (21:30)
[2020-09-11 21:37] LABS: BASOPHILS % (AUTO) 1 % (0-1); EOSINOPHILS % (AUTO) 1 % (1-7); LYMPHOCYTES % (AUTO) 15 % (22-44); MEAN CORPUSCULAR HEMOGLOBIN 29.7 pg (27.0-34.8); MEAN CORPUSCULAR HGB CONC 34.3 g/dL (32.4-35.8); MEAN PLATELET VOLUME 8.7 fL (7.4-10.4); MONOCYTES % (AUTO) 11 % (2-9); NEUTROPHILS % (AUTO) 73 % (42-75); PLATELET COUNT 173 x10^3/uL (130-400); RED BLOOD COUNT 4.57 x10^6/uL (3.82-5.3); RED CELL DISTRIBUTION WIDTH 13.5 % (9.6-15.2)
[2020-09-11 21:39] LABS: MD NO
[2020-09-11 21:46] LABS: ALANINE AMINOTRANSFERASE 22 U/L (12-78); ALBUMIN 3.6 g/dL (3.4-5.0); ANION GAP 9 mmol/L (5-15); CALCIUM 8.2 mg/dL (8.5-10.1); CHLORIDE 111 mmol/L (98-107); CREATININE 0.77 mg/dL (0.55-1.02)
[2020-09-11 21:50] LABS: ALKALINE PHOSPHATASE 56 U/L (45-117); BILIRUBIN,TOTAL 0.2 mg/dL (0.2-1.0); TOTAL PROTEIN 7.4 g/dL (6.4-8.2)
--- NOTE | 2020-09-11 22:34 | NUR ---
D/C INSTRUCTIONS RV'WD WITH PT, SHE VERBALIZED UNDERSTANDING. INSTRUCTED PT THAT SHE WILL BE CALLED ABOUT RESULTS OF COVID TEST. INSTRUCTED PT TO RETURN TO ED FOR SOB OR ANY OTHER CONCERNING SYMPTOMS. INSTRUCTED PT TO QUARANTINE FOR 2 WEEKS AND UNTIL SYMPTOMS RESOLVE. PT AMBULATED OUT OF ED WITHOUT DIFFICULTY. Addendum: 09/12/20 at 0056 by ABDON PT STATES SHE WILL MEET HER BROTHER UPON DISCHARGE.
== END 2020-09-11 22:35 | disposition home or self-care (01) ==
LOC: ED 20:44
DX: B34.9 Viral infection, unspecified (principal); Z20.822 Contact with and (suspected) exposure to COVID-19; A53.9 Syphilis, unspecified; R05 Cough; Z20.2 Contact with and (suspected) exposure to infections with a predominantly sexual mode of transmission; R19.7 Diarrhea, unspecified; M79.10 Myalgia, unspecified site; R51.9 Headache, unspecified; E03.9 Hypothyroidism, unspecified
CPT/HCPCS: 36415; 71045; 80053; 84703; 85025; 86592; 86780; 87635; 99284

== ENCOUNTER 2020-10-02 16:17 | Emergency (ER) | payer MEDICAID ==
[~2020-10-02] VITALS: Ht 160 cm; Wt 59.1 kg
[2020-10-02 16:20] VITALS: BP 148/93
--- NOTE | 2020-10-02 16:32 | NUR ---
PT NOTICED INGROWN HAIR TO LEFT THIGH X3 DAYS. PT HAS BEEN PICKING AT IT AND REDNESS AROUND WOUND.
[2020-10-02] MEDS ORDERED: LIDOCAINE-MPF 1%, 5ML ONE (16:37)
--- NOTE | 2020-10-02 16:49 | NUR ---
MAYO ALLEN AT BEDSIDE FOR I&D. MED PULLED FOR PROVIDER ADMIN
[2020-10-02 16:58] LABS: BASOPHILS % (AUTO) 1 % (0-1); EOSINOPHILS % (AUTO) 1 % (1-7); LYMPHOCYTES % (AUTO) 21 % (22-44); MEAN CORPUSCULAR HGB CONC 34.6 g/dL (32.4-35.8); MEAN PLATELET VOLUME 7.7 fL (7.4-10.4); MONOCYTES % (AUTO) 9 % (2-9); NEUTROPHILS % (AUTO) 68 % (42-75); PLATELET COUNT 244 x10^3/uL (130-400); RED CELL DISTRIBUTION WIDTH 13.2 % (9.6-15.2)
[2020-10-02 17:00] LABS: MD NO
[2020-10-02] MEDS ORDERED: LIDOCAINE 1%, 10ML INFIL ONE (17:00)
--- NOTE | 2020-10-02 17:03 | NUR ---
BREAK RN: ALEJANDRO RUGGIERO IN ROOM. NO ACUTE DISTRESS NOTED. WILL CONTINUE TO MONITOR WHILE PRIMARY RN IS ON BREAK.
[2020-10-02 17:06] LABS: ANION GAP 5 mmol/L (5-15); CALCIUM 8.2 mg/dL (8.5-10.1); CHLORIDE 107 mmol/L (98-107); CREATININE 0.63 mg/dL (0.55-1.02)
== END 2020-10-02 17:50 | disposition home or self-care (01) ==
LOC: ED 16:30
DX: L02.416 Cutaneous abscess of left lower limb (principal); L03.116 Cellulitis of left lower limb; E03.9 Hypothyroidism, unspecified; F17.200 Nicotine dependence, unspecified, uncomplicated; Z98.51 Tubal ligation status
CPT/HCPCS: 10060; 36415; 80048; 85025; 99283

== ENCOUNTER 2020-11-10 21:35 | Emergency (ER) | payer MEDICAID ==
[~2020-11-10] VITALS: Ht 160 cm; Wt 61.6 kg
[~2020-11-10 21:35] MED LIST changes: -HYDR-1067 PO; +HYDR-2214 PO
[2020-11-10 21:38] VITALS: BP 152/92
--- NOTE | 2020-11-10 21:44 | NUR ---
PT REFUSED EKG IN TRIAGE
[2020-11-10 22:59] LABS: FREE T4 (FREE THYROXINE) 0.83 ng/dL (0.76-1.46)
== END 2020-11-10 23:16 | disposition home or self-care (01) ==
LOC: ED 22:45
DX: R53.1 Weakness (principal); R42 Dizziness and giddiness; I10 Essential (primary) hypertension; E03.9 Hypothyroidism, unspecified; F17.200 Nicotine dependence, unspecified, uncomplicated; Z76.0 Encounter for issue of repeat prescription; Z98.51 Tubal ligation status
CPT/HCPCS: 36415; 84439; 84443; 99283

== ENCOUNTER 2020-12-10 21:18 | Emergency (ER) | payer MEDICAID ==
[~2020-12-10] VITALS: Ht 160 cm; Wt 62.4 kg
[2020-12-10 21:27] VITALS: BP 128/82
--- NOTE | 2020-12-10 23:11 | NUR ---
Refused blood work, informed ERP and PAC.
--- NOTE | 2020-12-10 23:18 | NUR ---
PT TO ROOM FROM [facility] INITIAL PT CONTACT. PT PRESENTS TO ED AND STATES SHE RAN OUT OF HER THYROID MEDICINE AND IS HERE FOR A PRESCRIPTION REFILL. PT STATES SHE'S "OUT OF IT", BECAUSE SHE HASN'T HAD HER MEDICINE FOR ABOUT A WEEK. PT SITTING UPRIGHT ON OBDULIO HAMLIN VSS. AWAITING ERP
--- NOTE | 2020-12-10 23:24 | NUR ---
ERP AT BEDSIDE
--- NOTE | 2020-12-10 23:38 | NUR ---
Patient given discharge instructions and they have confirmed that they understand the instructions. Patient ambulatory with steady gait. AMA PAPERWORK SIGNED BY PT
== END 2020-12-10 23:40 | disposition left against medical advice (07) ==
LOC: ED 21:48
DX: E03.9 Hypothyroidism, unspecified (principal); I10 Essential (primary) hypertension; F17.210 Nicotine dependence, cigarettes, uncomplicated; Z72.9 Problem related to lifestyle, unspecified; Z86.39 Personal history of other endocrine, nutritional and metabolic disease; Z76.0 Encounter for issue of repeat prescription
CPT/HCPCS: 99281; 99406

== ENCOUNTER 2021-01-14 00:37 | Emergency (ER) | payer MEDICAID ==
[~2021-01-14] VITALS: Ht 160 cm; Wt 59.8 kg
[2021-01-14 00:40] VITALS: BP 151/91
--- NOTE | 2021-01-14 00:51 | NUR ---
Rx instruct and referral, pt verbalizes understanding and need to f/u with pcp. To return to ER if worse or any concners. vss
== END 2021-01-14 01:03 | disposition home or self-care (01) ==
LOC: ED 00:45
DX: E03.9 Hypothyroidism, unspecified (principal); Z76.0 Encounter for issue of repeat prescription; I10 Essential (primary) hypertension; F17.210 Nicotine dependence, cigarettes, uncomplicated
CPT/HCPCS: 99281; 99406

== ENCOUNTER 2021-01-28 16:04 | Emergency (ER) | payer MEDICAID ==
[~2021-01-28] VITALS: Ht 160 cm; Wt 59.0 kg
[2021-01-28 16:07] VITALS: BP 126/102
--- NOTE | 2021-01-28 16:54 | NUR ---
NIL X1
--- NOTE | 2021-01-28 17:37 | NUR ---
NIL X2
--- NOTE | 2021-01-28 17:53 | NUR ---
NIL X3
== END 2021-01-28 18:29 | disposition left against medical advice (07) ==
LOC: ED 18:20
DX: Z53.21 Procedure and treatment not carried out due to patient leaving prior to being seen by health care provider (principal)

== ENCOUNTER 2021-02-04 21:42 | Emergency (ER) | payer MEDICAID ==
[~2021-02-04] VITALS: Ht 160 cm; Wt 59.1 kg
[2021-02-04 21:48] VITALS: BP 128/94
[2021-02-04 22:48] LABS: HCG UR SG 1.033 (1.003-1.030)
[2021-02-04 23:07] LABS: MICROSCOPIC INDICATED
[2021-02-04] MEDS ORDERED: CEFTRIAXONE 1,000 MG IM ONE (23:30)
[2021-02-04] MEDS ORDERED: AZITHROMYCIN 500 MG TABLET PO ONE (23:30)
[2021-02-04] MEDS ORDERED: CEFTRIAXONE 1,000 MG ONE (23:51)
[2021-02-04] MEDS ORDERED: AZITHROMYCIN 250 MG TABLET ONE (23:51)
== END 2021-02-05 00:37 | disposition home or self-care (01) ==
LOC: ED 23:00
DX: A56.01 Chlamydial cystitis and urethritis (principal); R30.0 Dysuria; E03.9 Hypothyroidism, unspecified; Z76.0 Encounter for issue of repeat prescription; I10 Essential (primary) hypertension; F17.200 Nicotine dependence, unspecified, uncomplicated
CPT/HCPCS: 81001; 81025; 96372; 99283; J0696

== ENCOUNTER 2021-04-02 22:18 | Emergency (ER) | payer MEDICAID ==
[~2021-04-02] VITALS: Ht 157.5 cm; Wt 48.0 kg
[2021-04-02 23:40] VITALS: BP 114/86
== END 2021-04-02 23:42 | disposition home or self-care (01) ==
LOC: ED 22:28
DX: E03.9 Hypothyroidism, unspecified (principal); Z76.0 Encounter for issue of repeat prescription; F17.210 Nicotine dependence, cigarettes, uncomplicated; F15.10 Other stimulant abuse, uncomplicated; Z72.9 Problem related to lifestyle, unspecified; I10 Essential (primary) hypertension
CPT/HCPCS: 99281; 99406